=== PATIENT | female | born 1995 | race Caucasian/White ===

== ENCOUNTER 2017-08-14 17:39 | Emergency (ER) | payer BC, SELFPAY ==
[2017-08-14 19:21] VITALS: BP 136/79; PULSE 107; RESP 20; TEMP 36.9; O2SAT 98; BMI 24.9
--- NOTE | 2017-08-14 19:54 | HMH.EDUTC ---
[facility] [place] Clinical Impression: Influenza-like illness Disposition: Home, Self-Care Condition on Discharge: Good Instructions: DI for Viral Upper Respiratory Infection -- Adult, DI for Influenza -- Adult Additional Instructions: * No sign of bacterial infection. Likely viral. Virus can take 7-14 days to run their course. As we discussed, this could potentially be the flu. Lungs are clear but as we discussed with your symptoms and history, a CXR would have been helpful to ensure for sure no pneumonia. I understand you were here a while and no longer wanted to wait so just be sure to follow up with primary care or return to [facility] for new or worsening symptoms or no improvement as expected based on what is discussed with results of upper respiratory panel. * Lots of rest * Increase fluids, water, gatorade, powerade, pedialyte if /toddler/child * Monitor Temp. Tylenol every 4 hours as needed no more then 5 times a day or 4000mg in 24 hours and/or ibuprofen every 6 hours as needed no more then 3200mg in 24 hours (as long as your primary care doctor has told you that it is ok to take both) for fever/aches/pain. ER if fever no less than 101 despite tylenol and Ibuprofen * You (or your child) are contagious until no fever, aches, chills x 24 hours without medication for symptoms. * warm salt water gargles * warm fluids * sore throat lozenges * sleep elevated * humidifier/vaporizer * I do not work tomorrow. Call tomorrow after 9a at [phone] and ask for upper respiratory panel results and education based on diagnosis. If flu, ask the SPARK TESTER working to call you in tamiflu per me and start it immediately. No pharmacy open to start it tonight. If no findings on upper respiratory panel results, follow up is VERY important with your history to rule out other causes of your symptoms. Follow up with primary care in 1-2 days. Time of Disposition: 20:59 Medical Decision Making Vital Signs: 08/14/17 19:21 Temperature 98.4 F Temperature Source Temporal Artery Scan Pulse Rate [Right Brachial] 107 H Respiratory Rate 20 Blood Pressure [Right Arm] 136/79 Blood Pressure Mean [Right Arm] 98 Blood Pressure Source [Right Arm] Automatic Cuff Blood Pressure Position [Right Arm] Sitting 02 Sat by Pulse Oximetry 98 Oxygen Delivery Method Room Air - Lab Data Lab results reviewed: Yes: I reviewed the patient's lab results. Lab Results 08/14/17 19:22: Influenza Type A Ag Negative, Influenza Type B Ag Negative Orders (Tests/Meds): ORDERS Category Date Time Status Upper Respiratory Panel, PCR Stat Lab 08/14/17 20:39 Received - Greg Inquiry Pt receiving controlled substance: No - Reevaluation(s) Time: 20:50 Reevaluation #1: patient doesn't want to wait any longer for CXR although respiratory is on their way right now. Ready to be discharged. Wants CXR cancelled. Will follow up for new, worsening or persistent symptoms and plans to call in morning for upper respiratory panel results. [facility] [place] - General Stated complaint: cough Time Seen by Provider: 08/14/17 19:54 Mode of Arrival: Family Vehicle Source of Information: Patient Limitations: No Limitations Description of Symptoms (Recalled from Triage Doc. by RN): PT HAS COUGH,CONGESTION, BODY ACHES,HEADACHES,CHILLS, RUNNY NOSE,FATIGUE. HEENT Symptoms (Recalled from RN notes): Yes (RUNNY NOSE,HEADACHES, CHILLS,BODY ACHES) Resp Symptoms (Recalled from RN notes): Yes (COUGH,CONGESTION) Skin Symptoms (Recalled from RN notes): No MS Symptoms (Recalled from RN notes): No Functional Status (Recalled from RN notes): FATIGUE - History of Present Illness Provider Complaint: c/o I think I have the flu . nonprod cough, chest congestion, aches, chills, headaches, rhinorrhea, fatigue starting last night. Started w/ cough and progressed within hours. No known sick contacts. Hx of lupus. Feeling feverish without a fever. nausea once today. Hasn't taken or tried anything for symptoms
--- NOTE | 2017-08-14 20:05 | ED_ITS ---
[facility] [place]ression: Influenza-like illness Disposition: Home, Self-Care Condition on Discharge: Good Instructions: DI for Viral Upper Respiratory Infection -- Adult, DI for Influenza -- Adult Additional Instructions: * No sign of bacterial infection. Likely viral. Virus can take 7-14 days to run their course. As we discussed, this could potentially be the flu. Lungs are clear but as we discussed with your symptoms and history, a CXR would have been helpful to ensure for sure no pneumonia. I understand you were here a while and no longer wanted to wait so just be sure to follow up with primary care or return to [facility] for new or worsening symptoms or no improvement as expected based on what is discussed with results of upper respiratory panel. * Lots of rest * Increase fluids, water, gatorade, powerade, pedialyte if /toddler/child * Monitor Temp. Tylenol every 4 hours as needed no more then 5 times a day or 4000mg in 24 hours and/or ibuprofen every 6 hours as needed no more then 3200mg in 24 hours (as long as your primary care doctor has told you that it is ok to take both) for fever/aches/pain. ER if fever no less than 101 despite tylenol and Ibuprofen * You (or your child) are contagious until no fever, aches, chills x 24 hours without medication for symptoms. * warm salt water gargles * warm fluids * sore throat lozenges * sleep elevated * humidifier/vaporizer * I do not work tomorrow. Call tomorrow after 9a at [phone] and ask for upper respiratory panel results and education based on diagnosis. If flu, ask the INJECTION MOLDER working to call you in tamiflu per me and start it immediately. No pharmacy open to start it tonight. If no findings on upper respiratory panel results, follow up is VERY important with your history to rule out other causes of your symptoms. Follow up with primary care in 1-2 days. Time of Disposition: 20:59 Medical Decision Making Vital Signs: 08/14/17 19:21 Temperature 98.4 F Temperature Source Temporal Artery Scan Pulse Rate [Right Brachial] 107 H Respiratory Rate 20 Blood Pressure [Right Arm] 136/79 Blood Pressure Mean [Right Arm] 98 Blood Pressure Source [Right Arm] Automatic Cuff Blood Pressure Position [Right Arm] Sitting 02 Sat by Pulse Oximetry 98 Oxygen Delivery Method Room Air - Lab Data Lab results reviewed: Yes: I reviewed the patient's lab results. Lab Results 08/14/17 19:22: Influenza Type A Ag Negative, Influenza Type B Ag Negative Orders (Tests/Meds): ORDERS Category Date Time Status Upper Respiratory Panel, PCR Stat Lab 08/14/17 20:39 Received - Greg Inquiry Pt receiving controlled substance: No - Reevaluation(s) Time: 20:50 Reevaluation #1: patient doesn't want to wait any longer for CXR although respiratory is on their way right now. Ready to be discharged. Wants CXR cancelled. Will follow up for new, worsening or persistent symptoms and plans to call in morning for upper respiratory panel results. [facility] [place] - General Stated complaint: cough Time Seen by Provider: 08/14/17 19:54 Mode of Arrival: Family Vehicle Source of Information: Patient Limitations: No Limitations Description of Symptoms (Recalled from Triage Doc. by RN): PT HAS COUGH, CONGESTION, BODY ACHES,HEADACHES,CHILLS, RUNNY NOSE,FATIGUE. HEENT Symptoms (Recalled from RN notes): Yes (RUNNY NOSE,HEADACHES, CHILLS,BODY ACHES) Resp Symptoms (Recalled from RN notes): Yes (COUGH,CONGESTION)
[2017-08-14 20:09] LABS: UTC Influenza A Antigen Negative (Negative); UTC Influenza B Antigen Negative (Negative)
[2017-08-14 20:46] LABS: Adenovirus,PCR Not Detected (NotDetected); Bordetella Pertussis Not Detected (NotDetected); Chlamydophila Pneumoniae, PCR Not Detected (NotDetected); Coronavirus 229E Not Detected (NotDetected); Coronavirus NL63 Not Detected (NotDetected); Coronavirus OC43 Not Detected (NotDetected); Coronovirus HKU1,PCR Not Detected (NotDetected); Human Metapneumovirus Not Detected (NotDetected); Influenza A, PCR Not Detected (NotDetected); Influenza AH1, 2009 Not Detected (NotDetected); Influenza AH1, PCR Not Detected (NotDetected); Influenza B, PCR Not Detected (NotDetected); Mycoplasma Pneumoniae, PCR Not Detected (NotDected); Parainfluenza 1, PCR Not Detected (NotDetected); Parainfluenza 2, PCR Not Detected (NotDetected); Parainfluenza 3, PCR Not Detected (NotDetected); Parainfluenza 4, PCR Not Detected (NotDetected); Respiratory Syncytial Virus Not Detected (NotDetected); Rhinovirus/Enterovirus Not Detected (NotDetected)
[2017-08-15 00:29] LABS: Influenza AH3,PCR Detected (NotDetected)
--- NOTE | 2017-08-15 11:13 | PC.NURSE ---
PT CALLED FOR RESULTS
--- NOTE | 2017-08-15 11:23 | PC.NURSE ---
CALLED IN TAMILFU TO THE [facility]
== END 2017-08-14 21:02 | disposition home or self-care (01) ==
PROVIDERS: Emergency Provider Nurse Practitioner Family
DX: J10.1 Influenza due to other identified influenza virus with other respiratory manifestations (principal); F10.10 Alcohol abuse, uncomplicated; Z79.899 Other long term (current) drug therapy; E03.9 Hypothyroidism, unspecified; I73.00 Raynaud's syndrome without gangrene
CPT/HCPCS: 87486; 87581; 87633; 87798; 87804; 99201